=== PATIENT | female | born 1950 | race Caucasian/White ===

== ENCOUNTER 2017-04-20 00:12 | Observation (INO) | payer MEDICARE, OTHER ==
[2017-04-20] VITALS (11 sets, daily range): BP systolic 139–152; BP diastolic 63–80; PULSE 57–88; RESP 16–20; TEMP 97.8–98.2; O2SAT 94–97
[~2017-04-20] VITALS: Ht 111.8 cm; Wt 79.5 kg
[2017-04-20] MEDS ORDERED: MORPHINE SULFATE 4 MG/ML INJ IV PUSH ONE (00:15)
[2017-04-20] MEDS ORDERED: SODIUM CHLORIDE 0.9% FLUSH 10 ML FLUSH IVF PRN (00:15)
[2017-04-20] MEDS ORDERED: NITROGLYCERIN 2% OINT 1 GM PACKET TOP ONE (00:15)
--- NOTE | 2017-04-20 00:19 | PD ---
HPI Chief Complaint: CP Time Seen by Provider: 00:15 Travel History International Travel<30 days: No Contact w/Intl Traveler<30days: No Traveled to known affect area: No History of Present Illness HPI WHILE WAKING UP TO GO TO URINATE PATIENT DEVELOPED SUBSTERNAL CP, SHARP/PRESSURE , 10/10, NONRAD, TOOK HER OWN ASA, EMS GAVE NTG WHICH DECREASED PAIN TO 3/10, CURRENTLY 5/10. DENIES ANY ALLEVIATING/AGGRAVATING FACTORS PMHX: GERD, HTN, HIGH CHOLESTEROL, ANGINA AND ALSO HAS [employer] DEVICE PFS Social History Tobacco Use: Yes Allergies-Medications (Allergen,Severity, Reaction): Coded Allergies: No Known Allergies (Unverified , 04/20/17) Reported Meds & Prescriptions Reported Meds & Active Scripts Active Reported Isosorbide Dinitrate 10 Mg Tab 10 Mg PO BID Belsomra (Suvorexant) 20 Mg Tab 20 Mg PO HS Pantoprazole (Pantoprazole Sodium) 40 Mg Tab 40 Mg PO DAILY Tizanidine (Tizanidine HCl) 4 Mg Cap 4 Mg PO TID Simvastatin 20 Mg Tab 20 Mg PO DAILY Vitamin D-1000 (Cholecalciferol) 1,000 Unit Tab 1,000 Units PO DAILY Vicodin Hp (Hydrocodone-Acetaminophen) 10-300 Tab 1 Tab PO Q4H PRN Cymbalta DR (Duloxetine HCl) 60 Mg Capdr 60 Mg PO DAILY Citalopram (Citalopram Hydrobromide) 20 Mg Tab 20 Mg PO DAILY Aspirin EC (Aspirin) 81 Mg Tabdr 81 Mg PO DAILY Review of Systems Except as stated in HPI: all other systems reviewed are Neg Cardiovascular: Positive: Chest Pain or Discomfort Physical Exam Narrative GENERAL: SKIN: Warm and dry. HEAD: Atraumatic. Normocephalic. EYES: Pupils equal and round. No scleral icterus. No injection or drainage. ENT: No nasal bleeding or discharge. Mucous membranes pink and moist. NECK: Trachea midline. No JVD. CARDIOVASCULAR: Regular rate and rhythm. RESPIRATORY: No accessory muscle use. FAINT CRACKLES HEARD BILATERALLY GASTROINTESTINAL: Abdomen soft, non-tender, nondistended. MUSCULOSKELETAL: Extremities without clubbing, cyanosis, or edema. No obvious deformities. NEUROLOGICAL: Awake and alert. No obvious cranial nerve deficits. Motor grossly within normal limits. Five out of 5 muscle strength in the arms and legs. Normal speech. PSYCHIATRIC: Appropriate mood and affect; insight and judgment normal. Data Data Last Documented VS Vital Signs Date Time Temp Pulse Resp B/P Pulse Ox O2 Delivery O2 Flow Rate FiO2 04/20/17 00:15 70 16 139/63 94 Room Air Orders Electrocardiogram (04/20/17 00:15) B-Type Natriuretic Peptide (04/20/17 00:15) Ckmb (Isoenzyme) Profile (04/20/17 00:15) Complete Blood Count With Diff (04/20/17:15) Comprehensive Metabolic Panel (04/20/17 00:15) D-Dimer (04/20/17:15) Prothrombin Time / Inr (Pt) (04/20/17:15) Act Partial Throm Time (Ptt) (04/20/17:15) Troponin I (04/20/17:15) Lipase (04/20/17 00:15) Chest, Single Ap (04/20/17 00:15) Ecg Monitoring (04/20/17 00:15) Bilateral Bp Monitoring (04/20/17:15) Iv Access Insert/Monitor (04/20/17 00:15) Oximetry (04/20/17 00:15) Oxygen Administration (04/20/17 00:15) Morphine Inj (Morphine Inj) (04/20/17 00:15) Nitroglycerin 2% Oint (Nitroglycerin 2% (04/20/17 00:15) Sodium Chloride 0.9% Flush (Ns Flush) (04/20/17 00:15) Ct Pulmonary Angiogram (04/20/17 01:35) Sodium Chlorid 0.9% 500 Ml Inj (Ns 500 M (04/20/17 01:45) Admit Order (Ed Use Only) (04/20/17 02:24) Activity Bed Rest With Brp (04/20/17 02:24) Vital Signs (Adult) Q4H (04/20/17 02:24) Cardiac Rhythm .As Directed (04/20/17 02:24) Notify Dr: Other .PRN (04/20/17 02:24) Notify . Parameters (04/20/17 02:24) Resp Oxygen Nasal Cannula (04/20/17 ) Diet Npo (04/20/17 Breakfast) Ckmb (Isoenzyme) Profile (04/20/17 02:24) Ckmb (Isoenzyme) Profile (04/20/17 05:24) Troponin I (04/20/17 02:24) Troponin I (04/20/17 05:24) Electrocardiogram (04/20/17 02:24) Electrocardiogram (04/20/17 05:24) ^ Obtain (04/20/17 02:24) Sodium Chloride 0.9% Flush (Ns Flush) (04/20/17 02:30) Sodium Chloride 0.9% Flush (Ns Flush) (04/20/17 02:30) Morphine Inj (Morphine Inj) (04/20/17 02:30) Ondansetron Inj (Zofran Inj) (04/20/17 02:30) Nitroglycerin Sl (Nitrostat Sl) (04/20/17 02:30) Aspirin Chew (Aspirin Chew) (04/20/17 02:30) Floor Scraper / Telemetry JON.Q8H (04/20/17 02:24) CKMB (04/20/17 06:45) CKMB% (04/20/17 06:45) Labs Laboratory Tests Test 04/20/17 00:20 White Blood Count 7.4 TH/MM3 Red Blood Count 4.19 MIL/MM3 Hemoglobin 12.6 GM/DL Hematocrit 35.6 % Mean Corpuscular Volume 85.1 FL Mean Corpuscular Hemoglobin 30.0 PG Mean Corpuscular Hemoglobin 35.3 % Concent Red Cell Distribution Width 13.5 % Platelet Count 240 TH/MM3 Mean Platelet Volume 7.3 FL Neutrophils (%) (Auto) 51.7 % Lymphocytes (%) (Auto) 35.9 % Monocytes (%) (Auto) 9.1 % Eosinophils (%) (Auto) 3.1 % Basophils (%) (Auto) 0.2 % Neutrophils # (Auto) 3.8 TH/MM3 Lymphocytes # (Auto) 2.6 TH/MM3 Monocytes # (Auto) 0.7 TH/MM3 Eosinophils # (Auto) 0.2 TH/MM3 Basophils # (Auto) 0.0 TH/MM3 CBC Comment DIFF FINAL Differential Comment Prothrombin Time 10.2 SEC Prothromb Time International 0.9 RATIO Ratio Activated Partial 26.0 SEC Thromboplast Time D-Dimer Quantitative (PE/DVT) 0.59 MG/L FEU Sodium Level 143 MEQ/L Potassium Level 3.8 MEQ/L Chloride Level 108 MEQ/L Carbon Dioxide Level 26.6 MEQ/L Anion Gap 8 MEQ/L Blood Urea Nitrogen 20 MG/DL Creatinine 1.12 MG/DL Estimat Glomerular Filtration 48 ML/MIN Rate Random Glucose 141 MG/DL Calcium Level 8.6 MG/DL Total Bilirubin 0.2 MG/DL Aspartate Amino Transf 14 U/L (AST/SGOT) Alanine Aminotransferase 18 U/L (ALT/SGPT) Alkaline Phosphatase 80 U/L Total Creatine Kinase 99 U/L Troponin I 0.03 NG/ML B-Type Natriuretic Peptide 22 PG/ML Total Protein 6.7 GM/DL Albumin 3.2 GM/DL Lipase 224 U/L [facility] Medical Decision Making Medical Screen Exam Complete: Yes Emergency Medical Condition: Yes Medical Record Reviewed: Yes Differential Diagnosis NJ V NONSTEMI V PE V PNA V PTX Narrative Course PATIENT CXR SHOWED ?WIDENED MEDIASTINUM BUT WITHOUT PNA OR PTX..., SO CT PE DONE WHICH WAS NEGATIVE FOR PE BUT DID SHOW MEDIASTINAL LAD ALONG WITH INCIDENTAL THYROID NODULE. NO NJ ON EKG, Diagnosis Primary Impression: CP R/O NJ Additional Impression: Mediastinal lymphadenopathy Admitting Information Admitting Physician Requests: Observation Scripts Amoxicillin-Clavulanate (Augmentin)875-125 Mg Tab1 Tab PO BID 7 Days Ref 0 Prov:Yisel Vaz MD 04/21/17 Amlodipine (Norvasc)5 Mg Tab5 Mg PO DAILY 30 Days Ref 0 Prov:Yisel Vaz MD 04/21/17 Jose Pierre MD Apr 20, 2017 00:19
[2017-04-20] MEDS ORDERED: SUVO1TAB4 PO (00:28)
[2017-04-20] MEDS ORDERED: VITA1000 PO (00:28)
[2017-04-20] MEDS ORDERED: INDO25CA PO (00:28)
[2017-04-20] MEDS ORDERED: PANT40TA3 PO (00:28)
[2017-04-20] MEDS ORDERED: CYMB60CA PO (00:28)
[2017-04-20] MEDS ORDERED: TIZA4CAP3 PO (00:28)
[2017-04-20] MEDS ORDERED: HYDR-3115 PO (00:28)
[2017-04-20] MEDS ORDERED: ISOS10TA PO (00:28)
[2017-04-20] MEDS ORDERED: CITA20TA4 PO (00:28)
[2017-04-20] MEDS ORDERED: DICL50TA3 PO (00:28)
[2017-04-20] MEDS ORDERED: ASPI81TA11 PO (00:28)
[2017-04-20] MEDS ORDERED: SIMV20TA PO (00:28)
--- NOTE | 2017-04-20 00:49 | RADRPT ---
EXAM DATE/TIME: 04/20/2017 00:15 [facility] COMPARISON: No previous studies available for comparison. INDICATIONS : Chest pain. MEDICAL HISTORY : Gastroesophageal reflux disease. Hypercholesterolemia. SURGICAL HISTORY : Mastectomy, right. ENCOUNTER: Initial ACUITY: 1 day PAIN SCORE: 5/10 LOCATION: Bilateral chest FINDINGS: Patchy infiltrates in the medial lower lungs bilaterally without consolidation. The upper lungs are clear. The heart is normal size. Both hemidiaphragms well delineated. Spinal stimulation electrode s in the midthoracic region. CONCLUSION: Patchy non-consolidative lower lung infiltrates. Uli Yu MD on April 20, 2017 at 0:47 Board Certified Radiologist. This report was verified electronically.
[2017-04-20 00:51] LABS: AUTOMATED NEUTROPHIL # 3.8 TH/MM3 (1.8-7.7); BASOPHIL % 0.2 % (0.0-2.0); EOSINOPHIL # 0.2 TH/MM3 (0-0.4); EOSINOPHIL % 3.1 % (0.0-4.0); HEMATOCRIT 35.6 % (35.0-46.0); HEMO FLAGS DIFF FINAL; LYMPH % 35.9 % (9.0-44.0); LYMPHOCYTE # 2.6 TH/MM3 (1.0-4.8); MEAN CELL VOLUME 85.1 FL (80.0-100.0); MEAN CORPUSCULAR HGB CONC 35.3 % (32.0-36.0); MONO % 9.1 % (0.0-8.0); NEUT % 51.7 % (16.0-70.0); PLATELET COUNT 240 TH/MM3 (150-450); RED BLOOD COUNT 4.19 MIL/MM3 (4.00-5.30); RED CELL DISTRIBUTION WIDTH 13.5 % (11.6-17.2); WHITE BLOOD COUNT 7.4 TH/MM3 (4.0-11.0)
[2017-04-20 00:59] LABS: ALT (GPT) 18 U/L (10-53); ANION GAP 8 MEQ/L (5-15); AST (GOT) 14 U/L (15-37); BICARBONATE 26.6 MEQ/L (21.0-32.0); BLOOD UREA NITROGEN 20 MG/DL (7-18); CHLORIDE 108 MEQ/L (98-107); GLOMERULAR FILTRATION RATE 48 ML/MIN (>89); POTASSIUM 3.8 MEQ/L (3.5-5.1); SODIUM (NA) 143 MEQ/L (136-145)
[2017-04-20 01:03] LABS: ALKALINE PHOSPHATASE 80 U/L (45-117); TOTAL BILIRUBIN ADULT 0.2 MG/DL (0.2-1.0)
[2017-04-20 01:06] LABS: CREATINE KINASE 99 U/L (26-192)
[2017-04-20 01:07] LABS: INTERNATIONAL NORMALIZED RATIO 0.9 RATIO; PROTHROMBIN TIME - PATIENT 10.2 SEC (9.8-11.6)
[2017-04-20] MEDS ORDERED: SODIUM CHLORID 0.9% 500 ML INJ 500 ML IV ONE (01:45)
[2017-04-20] MEDS ORDERED: MORPHINE SULFATE 4 MG/ML INJ IV PRN (02:30)
[2017-04-20] MEDS ORDERED: SODIUM CHLORIDE 0.9% FLUSH 10 ML FLUSH IV FLUSH PRN (02:30)
[2017-04-20] MEDS ORDERED: ONDANSETRON HCL 4 MG/2 ML VIAL IV PRN ×2 (02:30→12:15)
[2017-04-20] MEDS ORDERED: NITROGLYCERIN 0.4 MG SL 25 TABS/BTL SL PRN (02:30)
[2017-04-20] MEDS ORDERED: ASPIRIN 81 MG CHEW TAB PO ONE (02:30)
[2017-04-20] MEDS: SODIUM CHLORIDE 0.9% FLUSH 10 ML FLUSH IV FLUSH SCH ×3 (02:32→20:27)
[2017-04-20] MEDS ORDERED: IOHEXOL 350 MG/ML 10 ML VIAL (for RAD DIAG) IV ONE (02:55)
--- NOTE | 2017-04-20 03:05 | RADRPT ---
EXAM DATE/TIME: 04/20/2017 02:39 [facility] COMPARISON: No previous studies available for comparison. INDICATIONS : Chest pain with elevated D-Dimer. IV CONTRAST: 75 cc Omnipaque 350 (iohexol) IV RADIATION DOSE: 23.38 CTDIvol (mGy) MEDICAL HISTORY : Gastroesophageal reflux disease. SURGICAL HISTORY : Hysterectomy. Spinal stimulator ENCOUNTER: Initial ACUITY: 1 day PAIN SCALE: 8/10 LOCATION: Bilateral chest TECHNIQUE: Volumetric scanning of the chest was performed using a pulmonary embolism protocol MIP images were re constructed. Using automated exposure control and adjustment of the mA and/or kV according to patien t size, radiation dose was kept as low as reasonably achievable to obtain optimal diagnostic quality images. DICOM format image data is available electronically for review and comparison. Follow-up recommendations for detected pulmonary nodules are based at a minimum on nodule size and pa tient risk factors according to Fleischner Society Guidelines. FINDINGS: PULMONARY ARTERIES: No filling defects are seen in the pulmonary arteries through the segmental level. LUNGS: There is a small triangular-shaped area of consolidation in the anterior left lower lung and medial r ight lower lung adjacent to the heart border. PLEURAE: There is no pleural thickening or pleural effusion. MEDIASTINUM: Multiple prominent lymph nodes in the superior mediastinum (1.4 cm), middle mediastinum and periaorti c region (1.8 cm), right hilar region (2.5 cm), and left infrahilar region (1.5 cm). OTHER: Enlarged right lobe of the thyroid containing a 2.2 cm low density nodule CONCLUSION: 1. The study is negative for pulmonary embolism. 2. Adenopathy in the superior mediastinum, middle mediastinum, and bilateral hilar regions. 3. 2 cm right thyroid nodule. 4. Small bilateral lower lung pulmonary infiltrates. Uli Yu MD on April 20, 2017 at 2:58 Board Certified Radiologist. This report was verified electronically.
[2017-04-20] MEDS ORDERED: LEVOFLOXACIN 500 MG PREMIX INJ 100 ML IV ONE (03:15)
[2017-04-20] MEDS ORDERED: PILL SPLITTER OTHER PRN (08:15)
[2017-04-20] MEDS: NITROGLYCERIN 2% OINT 1 GM PACKET TOPICAL SCH ×3 (08:19→20:27)
[2017-04-20 08:32] LABS: CKMB 6.6 NG/ML (0.5-3.6)
[2017-04-20] MEDS ORDERED: amLODIPine BESYLATE 5 MG TAB PO SCH (09:00)
[2017-04-20] MEDS ORDERED: SODIUM CHLOR 0.9% 1000 ML INJ 1,000 ML IV SCH ×2 (09:41→12:15)
--- NOTE | 2017-04-20 09:44 | HHI.HP ---
[facility] Service [facility] Primary Care Physician No Primary Care Physician Admission Diagnosis CP R/O [place] Diagnoses: (1) Chest pain Diagnosis: Principal Travel History International Travel<30 Days: No Contact w/Intl Traveler <30 Da: No Traveled to Known Affected Are: No History of Present Illness patient is a 67 y/o female with history of angina and dyslipidemia who presented to ER with chest pain. she says that last night when she was going to bathroom she started to have some chest pain.pain was midsternal with some radiation to the left jaw and left arm. pain was associated with nausea but with no emesis,sob or diaphoresis. pain improved with the nitro that she received. at the time of my evaluation she was in no acute distress, with no chest pain but complaining of mild headache.she says that she had stress test about two years ago. Review of Systems Constitutional: DENIES: Fever, Weight loss, Chills, Night Sweats Eyes: DENIES: Blurred vision, Diplopia, Vision loss, Double Vision Ears, nose, mouth, throat: DENIES: Tinnitus, Vertigo, Throat pain, Epistaxis Respiratory: DENIES: Apneas, Cough, Snoring, Wheezing, Hemoptysis, Sputum production, Shortness of breath Cardiovascular: COMPLAINS OF: Chest pain, DENIES: Palpitations, Syncope, Dyspnea on Exertion, PND, Lower Extremity Edema, Orthopnea, Claudication Gastrointestinal: COMPLAINS OF: Nausea, DENIES: Abdominal pain, Black stools, Bloody stools, Constipation, Diarrhea, Vomiting, Difficulty Swallowing, Anorexia Genitourinary: DENIES: Urinary frequency, Urgency, Hematuria, Dysuria Musculoskeletal: DENIES: Joint pain, Muscle aches, Stiffness, Joint Swelling Integumentary: DENIES: Rash Neurologic: DENIES: Abnormal gait, Headache, Localized weakness, Paresthesias, Seizures, Speech Problems, Tremor, Poor Balance Psychiatric: DENIES: Anxiety, Confusion, Mood changes, Depression, Hallucinations, Agitation, Suicidal Ideation, Homicidal Ideation, Delusions Past Family Social History Past Medical History angina dyslipidemia breast cancer pituitary tumor back pain Past Surgical History mastectomy with breast reconstruction pituitary tumor removal gastric surgery knee surgery Reported Medications Isosorbide Dinitrate 10 Mg Tab 10 Mg PO BID Diclofenac Sodium DR (Diclofenac Sodium) 50 Mg Tabdr 50 Mg PO BID Belsomra (Suvorexant) 20 Mg Tab 20 Mg PO HS Pantoprazole (Pantoprazole Sodium) 40 Mg Tab 40 Mg PO DAILY Indomethacin 25 Mg Cap 25 Mg PO TID Take with food, milk, or antacids to decrease stomach adverse effects. Tizanidine (Tizanidine HCl) 4 Mg Cap 4 Mg PO TID Simvastatin 20 Mg Tab 20 Mg PO DAILY Vitamin D-1000 (Cholecalciferol) 1,000 Unit Tab 1,000 Units PO DAILY Vicodin Hp (Hydrocodone-Acetaminophen) 10-300 Tab 1 Tab PO Q4H PRN Cymbalta DR (Duloxetine HCl) 60 Mg Capdr 60 Mg PO DAILY Citalopram (Citalopram Hydrobromide) 20 Mg Tab 20 Mg PO DAILY Aspirin EC (Aspirin) 81 Mg Tabdr 81 Mg PO DAILY Allergies: Coded Allergies: No Known Allergies (Unverified , 04/20/17) Active Ordered Medications Current Medications Morphine Sulfate (Morphine Inj) 2 mg ONCE ONCE IV PUSH Last administered on 00:36; Start 04/20/17 at 00:15; Stop 04/20/17 at 00:18; Status DC Nitroglycerin (Nitroglycerin 2% Oint) 1 inch ONCE ONCE TOP Last administered on 04/20/17 00:36; Start 04/20/17 at 00:15; Stop 04/20/17 at 00:18; Status DC Sodium Chloride 2 ml 2 ml UNSCH PRN IVF FLUSH AFTER USING IV ACCESS; Start at 00:15 Sodium Chloride (NS 500 ml Inj) 500 ml @ 500 mls/hr BOLUS ONCE IV Last administered on 04/20/17 02:02; Start 04/20/17 at 01:45; Stop 04/20/17 at 02:44 ; Status DC Sodium Chloride (NS Flush) 2 ml UNSCH PRN IV FLUSH FLUSH AFTER USING IV ACCESS ; Start 04/20/17 at 02:30 Sodium Chloride (NS Flush) 2 ml BID IV FLUSH Last administered on 04/20/17 08: 20; Start 04/20/17 at 02:30 Morphine Sulfate (Morphine Inj) 2 mg Q4H PRN IV PAIN SCALE 8 TO 10; Start 04/20 at 02:30 Ondansetron HCl (Zofran Inj) 4 mg Q6H PRN IV NAUSEA; Start 04/20/17 at 02:30 Nitroglycerin (Nitrostat Sl) 0.4 mg Q5M PRN SL CHEST PAIN; Start 04/20/17 at 02 :30 Aspirin (Aspirin Chew) 162 mg STAT ONCE PO ; Start 04/20/17 at 02:30; Stop at 02:31; Status DC Iohexol 75 ml 75 ml STK-MED ONCE IV Last administered on 04/20/17 02:55; Start 04/20/17 at 02:55; Stop 04/20/17 at 02:56; Status DC Levofloxacin/ Dextrose (Levaquin 500 Mg Premix Inj) 100 ml @ 100 mls/hr ONCE ONCE IV Last administered on 04/20/17 03:15; Start 04/20/17 at 03:15; Stop at 04:14; Status DC Nitroglycerin (Nitroglycerin 2% Oint) 1 inch Q6H TOPICAL Last administered on 08:19; Start 04/20/17 at 08:00 Amlodipine Besylate (Norvasc) 2.5 mg DAILY PO Last administered on 04/20/17 08 :19; Start 04/20/17 at 09:00 Miscellaneous (Pill Splitter) 1 ea UNSCH PRN OTHER SEE LABEL COMMENTS; Start at 08:15 Family History heart attack in her father at his 40's. Social History quit smoking a month ago. doesn't drink. Physical Exam Vital Signs Vital Signs Date Time Temp Pulse Resp B/P Pulse Ox O2 Delivery O2 Flow Rate FiO2 04/20/17 05:54 73 04/20/17 05:47 97.8 57 18 141/70 96 04/20/17 03:45 62 20 143/67 96 Room Air 04/20/17 02:52 21 04/20/17 00:15 70 16 139/63 94 Room Air Physical Exam GENERAL: This is a well-nourished, well-developed patient, in no apparent distress. SKIN: No rashes, ecchymoses or lesions. Cool and dry. HEAD: Atraumatic. Normocephalic. No temporal or scalp tenderness. EYES: Pupils equal round and reactive. Extraocular motions intact. No scleral icterus. No injection or drainage. ENT: Nose without bleeding, purulent drainage or septal hematoma. Throat without erythema, tonsillar hypertrophy or exudate. Uvula midline. Airway patent. NECK: Trachea midline. No JVD or lymphadenopathy. Supple, nontender, no meningeal signs. CARDIOVASCULAR: Regular rate and rhythm without murmurs, gallops, or rubs. RESPIRATORY: Clear to auscultation. Breath sounds equal bilaterally. No wheezes , rales, or rhonchi. GASTROINTESTINAL: Abdomen soft, non-tender, nondistended. No hepato-splenomegaly , or palpable masses. No guarding. MUSCULOSKELETAL: Extremities without clubbing, cyanosis, or edema. No joint tenderness, effusion, or edema noted. No calf tenderness. Negative Homans sign bilaterally. NEUROLOGICAL: Awake and alert. Cranial nerves II through XII intact. Motor and sensory grossly within normal limits. Five out of 5 muscle strength in all muscle groups. Normal speech. Laboratory Laboratory Tests Test 04/20/17 04/20/17 04/20/17 00:20 05:00 06:45 White Blood Count 7.4 Red Blood Count 4.19 Hemoglobin 12.6 Hematocrit 35.6 Mean Corpuscular Volume 85.1 Mean Corpuscular Hemoglobin 30.0 Mean Corpuscular Hemoglobin 35.3 Concent Red Cell Distribution Width 13.5 Platelet Count 240 Mean Platelet Volume 7.3 Neutrophils (%) (Auto) 51.7 Lymphocytes (%) (Auto) 35.9 Monocytes (%) (Auto) 9.1 Eosinophils (%) (Auto) 3.1 Basophils (%) (Auto) 0.2 Neutrophils # (Auto) 3.8 Lymphocytes # (Auto) 2.6 Monocytes # (Auto) 0.7 Eosinophils # (Auto) 0.2 Basophils # (Auto) 0.0 CBC Comment DIFF FINAL Differential Comment Prothrombin Time 10.2 Prothromb Time International 0.9 Ratio Activated Partial 26.0 Thromboplast Time D-Dimer Quantitative (PE/DVT) 0.59 Sodium Level 143 Potassium Level 3.8 Chloride Level 108 Carbon Dioxide Level 26.6 Anion Gap 8 Blood Urea Nitrogen 20 Creatinine 1.12 Estimat Glomerular Filtration 48 Rate Random Glucose 141 Calcium Level 8.6 Total Bilirubin 0.2 Aspartate Amino Transf 14 (AST/SGOT) Alanine Aminotransferase 18 (ALT/SGPT) Alkaline Phosphatase 80 Total Creatine Kinase 99 98 254 Troponin I 0.03 0.32 0.36 B-Type Natriuretic Peptide 22 Total Protein 6.7 Albumin 3.2 Lipase 224 Creatine Kinase MB 6.6 Creatine Kinase MB % 2.6 Result Diagram: 04/20/17 0020 04/20/[address] Angiography 04/20/17 0135 Signed Impressions: Service Date/Time: Thursday, April 20, 2017 02:39 - CONCLUSION: 1. The study is negative for pulmonary embolism. 2. Adenopathy in the superior mediastinum, middle mediastinum, and bilateral hilar regions. 3. 2 cm right thyroid nodule. 4. Small bilateral lower lung pulmonary infiltrates. Uli Yu MD Chest X-Ray 04/20/17 0015 Signed Impressions: Service Date/Time: Thursday, April 20, 2017 00:15 - CONCLUSION: Patchy non-consolidative lower lung infiltrates. Uli Yu MD EKG; sinus rhythm with no acute St-T changes Assessment and Plan Assessment and Plan A/P - NSTEMI received aspirin earlier- on nitro-cardiology consulted - dyslipidemia- resume statin -history of breast cancer with mediastinal adenopathy; f/u with her oncologist- this was d/w the patient. -thyroid nodule; f/u as outpatient; d/w the patient. -chronic back pain; continue with pain control.. Discussed Condition With the patient. Problem Qualifiers (1) Chest pain: Qualified Code: R07.9 - Chest pain, unspecified type Yisel Vaz MD Apr 20, 2017 09:44
[2017-04-20] MEDS ORDERED: ASPIRIN 325 MG TAB PO SCH (09:45)
[2017-04-20] MEDS ORDERED: diphenhydrAMINE HCL 50 MG/ML VIAL ONE (10:07)
[2017-04-20] MEDS ORDERED: methylPREDNISolone SOD SUCC 125 MG/2 ML VIAL ONE (10:07)
--- NOTE | 2017-04-20 10:17 | MB ---
cc: SHAHNAZ NICK M.D. DATE OF CONSULTATION 04/20/2017 REASON FOR CONSULTATION Evaluation of chest pain. HISTORY Barbi Roberts is a 67-year-old woman with a history of angina for the last 10-15 years. She has seen a technical support internship in [place] and had her last stress test two years ago. She traveled from [place] to [place] for vacation with her son and . She went to bed at 10:00 p.m. and woke up to urinate around midnight and when she was going back to bed developed severe substernal chest pain radiating to left arm and left jaw. It continued and did not go away. They called 9-1-1. The ambulance gave her two sprays of nitroglycerin and then it took about two hours for it to completely resolve. Her troponins have bumped up to 0.36 and so I was consulted. She has multiple risk factors for coronary artery disease. Father had his first heart attack at age 47, had multiple heart attacks after that. The patient smoked up to a pack a day since 17 years of age, having quit only one month ago. She has had recent high blood pressure. She has prediabetes. She is on simvastatin for hyperlipidemia. PAST MEDICAL HISTORY Includes: 1. Gastroesophageal reflux disease status post laparoscopic surgery to repair this. 2. Pre diabetes 3. Hypertension 4. Hyperlipidemia 5. Chronic angina 6. Chronic back pain with a [employer] stimulator. SOCIAL HISTORY She is . She is on vacation from [place]. She lives near [place]. She has a longstanding smoking history as described above. FAMILY HISTORY Father at age 67, but had several heart attack starting at age 47. Her mother was diabetic and when she finally , she had heart problems. There is no heart disease in her siblings. REVIEW OF SYSTEMS She has occasional stomach cramps. She has chronic back pain. She has neck and shoulder pain and was planning to have C-spine surgery May 02. She has sciatica in the left leg. PAST SURGERIES Include: 1. Pituitary tumor resection 2. Breast cancer with right mastectomy and reconstruction 3. Hysterectomy 4. Left knee surgery 5. Toe surgery PHYSICAL EXAMINATION This is a well-developed, well-nourished female in no acute distress. VITAL SIGNS: Charted. HEENT: Exam unremarkable. NECK: Shows no JVD. There are no carotid bruits. CHEST: Her chest shows slightly diminished breath sounds. No wheezes or rales. CARDIAC: S1, S2 regular rate and rhythm with a 1/6 systolic ejection murmur. ABDOMEN: Soft and nontender. EXTREMITIES: Reveal no clubbing, cyanosis or edema. Pulses are intact. Initial EKG showed a strain pattern in AVL which cleared up on a second EKG which I think is probably due to ischemia. Her troponin started out normal going up to 0.36, creatinine is 1.12, hematocrit 35.6. IMPRESSION Acute non-ST segment elevation myocardial infarction. PLAN I have obtained informed consent for cardiac catheterization and possible intervention. The risks discussed. Spoke briefly to her son, Mariano on the phone who will be on the way in along with her . The cardiac cath will be performed this morning. Further therapy to be determined. MD JUAN CARLOS Brar/MISHEL /9:43 AM /10:07 AM
[2017-04-20] MEDS ORDERED: HEPARIN-NS/PF INJ 500 ML ONE (10:52)
[2017-04-20] MEDS ORDERED: MIDAZOLAM HCL 2 MG/2 ML VIAL ONE (11:07)
[2017-04-20] MEDS ORDERED: MORPHINE SULFATE 8 MG/ML INJ ONE (11:49)
[2017-04-20] MEDS ORDERED: BACITRACIN OINT 0.9 GM PKT TOP ONE (12:15)
[2017-04-20] MEDS ORDERED: MISC INFORMATION XX ONE (12:15)
--- NOTE | 2017-04-20 12:26 | CATHPROC ---
[facility] HIS Report Study Information Study Number Admission Scheduled Start Study Start [id number] Apr 20 2017 2:27AM 04/20/2017 Apr 20 2017 9:54AM [place] Service Cardiac Catheterization Admit Source Facility Department Other [facility] - [employer] I Assembler Physician and Clinical Staff Initial Dominick Andre Casino Cashier Manager Phoebe Baird BSRKasandra Other cathlab, cathlab Recorder Kathleen Wiseman,COOLER WORKER TECH2 Recorder Sasha Mcclain,RT(R) Scrub Chapis Martinez,RT(R) Procedures Performed Procedure Location (Site) Vessel Name Angiogram LV LV Ventricle Coronary Angiograms LCA Left Coronary Coronary Angiograms RCA Right Coronary L Heart Cath Equipment Time Supervisor Properties Description Size Mfg Part Number Used/Scraped TRANSDUCER, TRHARISH [id number] 09:56 CORNEJO HANNON * Used W/STOCKCOCK *[id number] *[id number] *[id number] PIGTAIL ANG. 145 INFINITI [id number] CATHETER *[id number] 12:06 DAIG/ST. CHANA MEDICAL ANGIOSEAL, FR6 VIP FR 6 Used *[id number] 09:56 [facility] INDUSTRIES PACK, CCL CUSTOM * Used *[id number] 09:56 [facility] PACER PEN, SKIN DUAL W/ RULER * Used *[id number] 09:56 [employer] MEDICAL SHEATH, FR6.5 PRELUDE 11CM FR 6.5 038ACT Used *[id number] 09:56 [employer] MEDICAL WIRE, 3MMJ .035 180CM 180CM Used *[id number] 09:56 NAMIC MANIFOLD, 4 PORT * Used *[id number] 09:56 [employer] OMNIPAQUE, 350 MG, 100ML 100ML [id number] Used 11:56 [employer] OMNIPAQUE, 350 MG, 50ML 50ML [id number] Used [id number] 09:56 [employer] BLANKET,WARM AIR CCL * Used *[id number] History: Current Medications Medication Dosage/Unit Route Frequency Last Date/Time Taken Statins (any) Imdur VITAMIN D ASA History: Risk Factors Family History of Hypertension Dyslipidemia Previous [place] Previous Heart Failure Premature CAD Yes Yes Yes Yes No Prior Valve Prior PCI Prior CABG Surgery No No No Cerebrovascular Peripheral Artery Chronic Lung On Dialysis Diabetes Disease Disease Disease No No No No No History: Symptoms/Diagnosis Selection Items Chest pain History: Stress Tests Stress or Imaging Studies Performed No History: Other Current Smoker Method Packs a Day Years Used Pack Years Yes Cigarettes 1 50 50 Comment 1/2pack per day for 60years Labs Hgb (g/dl) Hct (%) WBC (l/cumm) Platelets (thousands) 11.60-17.00 35.00-51.00 4.00-11.00 150.00-450.00 12.6 35.6 7.4 240 Glucose (mg/dl) BUN (mg/dl) Creatinine (mg/dl) BUN:Creatinine (1:x) 74.00-106.00 7.00-18.00 0.50-1.30 10.00-20.00 141 20 1.1 18.2 Na (meq/l) K (meq/l) 136.00-145.00 3.50-5.10 143 3.8 INR (PTT:PT) 0.90-1.10 0.9 Troponin I (ng/ml) CPK (u/l) CPK-MB (ng/ML) 0.02-0.05 26.00-308.00 0.50-3.60 0.36 254 6.6 Medication Medication Total Dose (Bolus/Oral) Medication Total Dosage/Unit 1% XYLOCAINE 20 mL BENADRYL 50 mg MORPHINE 2 mg SOLU-MEDROL 125 mg VERSED 1 mg Medications (Bolus/Oral) Medication Time Given Dosage/Unit Administered By Reason SOLU-MEDROL 04/20/2017 10:37:31 AM 125 mg Rittenour, Phoebe 125 mg SOLU-MEDROL given in holding/recovery area by Phoebe Baird BSRN in Left Hand via Peripher al IV. BENADRYL 04/20/2017 10:38:30 AM 50 mg Rittenour, Phoebe 50 mg BENADRYL given in holding/recovery area by Phoebe Baird BSRN in Left Hand via Peripheral I V. VERSED 04/20/2017 11:29:44 AM 1 mg Rittenour, Phoebe 1 mg VERSED given in lab by Phoebe Baird BSRN in Left Hand via Peripheral IV. 1% XYLOCAINE 04/20/2017 11:51:23 AM 20 mL Dominick Payton 20 mL 1% XYLOCAINE given in lab by Dominick Payton in Right Groin via Subcutaneous. MORPHINE 04/20/2017 11:51:39 AM 2 mg Phoebe Baird 2 mg MORPHINE given in lab by Phoebe Baird BSRN in Left Hand via Peripheral IV. Medication (Drip) Medication Time Given Dosage/Unit Concentration/Unit Diluent (ml) Solution IV Solutions 04/20/2017 11:01:47 AM 0 mL (IV) 1000 NaCl .9 Patient arrived on IV Solutions given by Phoebe Baird BSRN in Left Hand via Peripheral IV. Pump/ Drip Flow = 20 ml/hr using NaCl .9. Final Case Assessment Cardiovascular HR Rhythm NIBP Chest Pain 68 nsr 189/81 0 Edema Present Skin color Skin None Normal Warm Circulatory - Right Pulses Dorsalis Pedis Femoral 1 1 Scale (0,1,2,3,4,d) Circulatory - Left Pulses Dorsalis Pedis Femoral 1 1 Scale (0,1,2,3,4,d) Neurological State Oriented to time-place- Alert Moves all extremities person Respiration - General Respiration Rate SpO2 (%) (B/min) 11 95 Chronological Log Time Study Chronological Log 9:58:42 Patient arrived via Bed. 9:58:46 Patient Name, D.O.B, / Armband Verified By R.N. 10:00:35 Consent signed by the physician and the patient and verified by the [employer] I Assembler staff. 10:00:36 Pre-op and post- op instructions given; patient acknowledges understanding of instructions. 10:01:39 Patient has been NPO for More than 6Hrs. 10:01:40 Skin Breakdown- knicks from shaving legs 10:01:47 Patient Warmer Placed on the Table. 10:02:00 A # 20 IV was noted in the Antecubital (left). Grade = does not flush 10:15:08 MD called away for STEMI, Patient transporated to DOCU until MD available. 10:37:31 125 mg SOLU-MEDROL given in holding/recovery area by Phoebe Baird BSRN in Left Hand vi a Peripheral IV. 10:38:30 50 mg BENADRYL given in holding/recovery area by Phoebe Baird BSRN in Left Hand via Pe ripheral IV. Patient brought back to Cathlab. Patient pre-medicated with benedyrl 50 mg IV 10:38 and solumed rol 125 mg IV 10:49:35 10:37. 10:51:21 Korina Prominences Protected Vitals capture started with the following parameters, Patient=Adult, Interval=5 min, Initial Pr kxpymj=556 mmHg, 10:55:25 Deflation Rate=5 mmHg, Cuff placed on Right Arm 10:56:29 HR=71 bpm, LQMS=300/104 mmhg, SpO2=97.0 %, Pain=0, Sunita=10, Claros=2 11:00:08 Reference ECG taken 11:01:09 HR=67 bpm, XTKL=328/67 mmhg, SpO2=97.0 %, Resp=8 B/min 11:01:16 A # 22 IV was noted in the Hand (left). Grade = patent Patient arrived on IV Solutions given by Phoebe Baird BSRN in Left Hand via Peripheral IV. Pump/Drip Flow = 20 11:01:47 ml/hr using NaCl .9. 11:06:08 HR=65 bpm, XDLW=488/84 mmhg, SpO2=97.0 %, Resp=13 B/min 11:11:16 HR=63 bpm, CXJM=173/86 mmhg, SpO2=96.0 %, Resp=17 B/min 11:16:11 HR=61 bpm, OKFV=201/103 mmhg, SpO2=96.0 %, Resp=14 B/min 11:25:30 X-ray down, patient transferred to another lab. Vitals capture started with the following parameters, Patient=Adult, Interval=5 min, Initial Pr zywnti=248 mmHg, 11:26:54 Deflation Rate=5 mmHg, Cuff placed on Right Arm 11:27:57 Bilateral groins prepped with 2% chlorhexidine, and draped after a 3 min. waiting time. 11:28:28 Vitals capture stopped. Vitals capture started with the following parameters, Patient=Adult, Interval=5 min, Initial Pr bxhrnf=271 mmHg, 11:29:07 Deflation Rate=5 mmHg, Cuff placed on Left Leg 11:29:44 1 mg VERSED given in lab by Phoebe Baird BSRN in Left Hand via Peripheral IV. 11:30:12 Reference ECG taken 11:30:21 HR=67 bpm, WLLH=398/97 mmhg, SpO2=97.0 %, Resp=17 B/min 11:33:01 Pressure channel 1 zeroed. 11:34:58 HR=63 bpm, ALSI=430/83 mmhg, SpO2=97.0 %, Resp=16 B/min 11:37:38 MD paged 11:37:39 MD responded 11:40:01 HR=63 bpm, CRGT=293/75 mmhg, SpO2=96.0 %, Resp=14 B/min 11:45:43 HR=65 bpm, VTCU=537/86 mmhg, SpO2=97.0 %, Resp=13 B/min 11:47:59 MD arrived. Time Out. Correct patient, correct procedure,correct physician, ,power injector loaded or not l oaded with contrast with 11:48:22 surgical team present. Time Out Concurred by MD, individual staff and GLASS CUT OFF SUPERVISOR in procedure 11:49:31 Case Start 11:51:23 20 mL 1% XYLOCAINE given in lab by Dominick Payton in Right Groin via Subcutaneous. 11:51:30 HR=63 bpm, CPEV=633/78 mmhg, SpO2=96.0 %, Resp=17 B/min 11:51:39 2 mg MORPHINE given in lab by Phoebe Baird BSRN in Left Hand via Peripheral IV. 11:53:47 Access site was Right Femoral Artery. 11:54:00 A SHEATH, FR6.5 PRELUDE 11CM FR 6.5 was advanced into the Fem Art (right) using the Percuta neous technique. 11:54:56 HR=67 bpm, UBQD=993/78 mmhg, SpO2=95.0 %, Resp=5 B/min A PIGTAIL ANG. 145 INFINITI CATHETER FR 6 was advanced over a wire. OMNIPAQUE, 350 MG, 50ML 50M L was used 11:55:04 for injections. Recorded Pressure: LV, HR=68, Condition=Condition 1 11:56:22 (Left Ventricle) LV 154/-10/11 11:56:46 The LV was injected at 10 cc/sec for a total of 30. OMNIPAQUE, 350 MG, 50ML 50ML used. Recorded Pressure: LV, Ao, HR=68, Condition=Condition 1 11:57:33 (Left Ventricle) LV 159/-5/11, (Aorta) Ao 155/71/106 11:57:58 Catheter was removed A JL 4.0 INFINITI CATHETER FR 6 was advanced over a wire. OMNIPAQUE, 350 MG, 100ML 100ML was us ed for 11:58:00 injections. 11:59:55 HR=65 bpm, RGBN=565/81 mmhg, SpO2=94.0 %, Resp=13 B/min 12:00:09 The LCA was injected and visualized at various angles. OMNIPAQUE, 350 MG, 100ML 100ML used . 12:00:29 Catheter was removed A 3DRC INFINITI CATHETER FR 6 was advanced over a wire. OMNIPAQUE, 350 MG, 100ML 100ML was used for 12:00:32 injections. 12:02:31 The RCA was injected and visualized at various angles. OMNIPAQUE, 350 MG, 100ML 100ML used . 12:04:30 Catheter was removed 12:04:54 HR=76 bpm, QTTL=375/76 mmhg, SpO2=94.0 %, Resp=12 B/min 12:05:05 An injection in the Fem Art (right) was made through the SHEATH, FR6.5 PRELUDE 11CM FR 6.5. 12:05:54 ANGIOSEAL, FR6 VIP FR 6 placement in the Fem Art (right) 12:06:49 Case End 12:06:51 No case complications noted. 12:07:31 Sterile dressing applied to site 12:08:48 Cine recording checked. 12:08:54 Bedside Report will be given. 12:09:55 HR=68 bpm, FPNV=742/81 mmhg, SpO2=95.0 %, Resp=11 B/min 12:13:59 Implantable Device card placed in patient's chart. 12:15:05 A Left Heart Cath was performed. 12:15:07 Patient moved to stretcher 12:16:36 Patient transported to DOCU. Assessment: Final Case, HR=68 BPM, Rhythm=nsr, ZNUY=614/81 mmhg, Chest Pain=0, Edema=None, Leland r=Normal, Skin = Warm Right Pulses: Michel Ped=1, Femoral=1 12:24:05 Left Pulses: Michel Ped=1, Femoral=1 Neurological: State=Alert, Ox3, ANDINO Respiration: Resp=11 B/min, SpO2=95 % End Study - Contrast Media Used In Study Contrast Total Opened (mL) Total Used (mL) Total Wasted (mL) Omnipaque 85 85 0 End Study - Maximum Contrast Load Max Contrast Load (mL) 354.5 End Study - Radiation Exposure Fluoro Time (minutes) 1.9 End Study - Sheaths Sheaths Pulled By Sheath Hold Time (min) Dominick Payton 5 End Study - Patient Disposition Complications Transferred To Telemetry Bed
--- NOTE | 2017-04-20 12:37 | MA ---
cc: SHAHNAZ NICK M.D. DATE: 04/20/2017 PROCEDURE PERFORMED Left heart catheterization, left ventriculography, coronary angiography. BRIEF HISTORY Barbi Roberts is a 67-year-old female with longstanding history of angina, who came in with a severe chest pain episode and bumped her troponin up to above 0.3. Cardiac catheterization is performed to define her coronary anatomy and to see if revascularization was indicated. DESCRIPTION OF PROCEDURE The patient was brought to the cardiac qc lab technician in a fasting state. The right groin was prepped and draped in a sterile fashion. Using 1% lidocaine for local anesthesia a 6.5 Indonesian sheath was inserted in the right femoral artery. Next, left ventricular pressure was recorded using a pigtail catheter followed by left ventriculography and then a pullback. Coronary angiography was then performed using a left 4 Haresh for the left coronary artery and a 3-D RC for the right coronary artery. Angiography of the right femoral artery via the sheath was then performed followed by uncomplicated Angio-Seal placement. There were no complications. FINDINGS HEMODYNAMICS Left ventricular pressure is 159/0 with an end-diastolic pressure of 11. Aortic pressure is 155/71 with a mean of 106. There was no gradient during pullback from the left ventricle to the aorta. LEFT VENTRICULOGRAPHY Left ventriculography shows normal left ventricular function. Estimated ejection fraction is 60%. CORONARY ANGIOGRAPHY The left main coronary artery appears normal. The left anterior descending artery has a discrete 30% concentric proximal stenosis. The remainder of the LAD and the major diagonal branch were tortuous but without disease. The circumflex artery gives off one tortuous obtuse marginal branch and a mildly tortuous posterolateral branch which appear normal. The right coronary artery is dominant. The vessel has some slight proximal irregularity of 5% and about a 20% mid irregularity. It is a dominant vessel. CONCLUSIONS 1. Normal left ventricular function. 2. Normal left ventricular end-diastolic pressure. 3. Very mild nonobstructive coronary disease. PLAN The overall impression is that she may have sustained a small infarct due to coronary spasm. She has been on long-acting nitrates prior to admission. Will continue those and add amlodipine 5 mg daily. Will avoid a beta nabor since this potentially could worsen spasm. Continue her statin therapy. She can be discharged home when stable. MD LENNY Brar /12:19 PM /12:24 PM
[2017-04-20] MEDS ORDERED: IOHEXOL 350 MG/ML 100 ML BTL (for Cath Lab) OTHER ONE (14:15)
--- NOTE | 2017-04-20 15:55 | EKG ---
Date Performed: 04/20/2017 Time Performed: 04:56:00 PTAGE: 67 years EKG: Sinus rhythm ABNORMAL ECG NO PREVIOUS TRACING DOCTOR: Apolinar Wyman Interpretating Date/Time 04/20/2017 15:53:08
--- NOTE | 2017-04-20 15:56 | EKG ---
Date Performed: 04/20/2017 Time Performed: 00:16:58 PTAGE: 67 years EKG: Sinus rhythm ABNORMAL ECG NO PREVIOUS TRACING DOCTOR: Apolinar Wyman Interpretating Date/Time 04/20/2017 15:54:20
--- NOTE | 2017-04-20 15:58 | EKG ---
Date Performed: 04/20/2017 Time Performed: 06:35:29 PTAGE: 67 years EKG: SINUS BRADYCARDIA ABNORMAL ECG NO PREVIOUS TRACING DOCTOR: Apolinar Wyman Interpretating Date/Time 04/20/2017 15:55:45
[2017-04-21] VITALS (13 sets, daily range): BP systolic 109–117; BP diastolic 52–63; PULSE 66–87; RESP 20; TEMP 97.7–98; O2SAT 95–97
[2017-04-21] MEDS: NITROGLYCERIN 2% OINT 1 GM PACKET TOPICAL SCH ×2 (01:23→08:14)
[2017-04-21 07:12] LABS: POTASSIUM 3.8 MEQ/L (3.5-5.1)
[2017-04-21 07:16] LABS: HDL CHOLESTEROL 67.4 MG/DL (40.0-60.0)
[2017-04-21] MEDS: SODIUM CHLORIDE 0.9% FLUSH 10 ML FLUSH IV FLUSH SCH (08:14)
[2017-04-21] MEDS ORDERED: amLODIPine BESYLATE 5 MG TAB PO SCH (09:00)
[2017-04-21] MEDS ORDERED: ASPIRIN EC 81 MG TABEC PO SCH (09:00)
[2017-04-21] MEDS ORDERED: PANTOPRAZOLE SOD 40 MG DELAYED RELEASE TAB PO SCH (09:00)
[2017-04-21] MEDS ORDERED: CITALOPRAM HYDROBROMIDE 20 MG TAB PO SCH (09:00)
[2017-04-21] MEDS ORDERED: PRAVASTATIN SOD 40 MG TAB PO SCH (09:00)
--- NOTE | 2017-04-21 09:16 | HHI.PR ---
Subjective Remarks resting comfortably with no distress. no chest pain or sob. has occasional cough. no fever. Objective Vitals Vital Signs Date Time Temp Pulse Resp B/P Pulse Ox O2 Delivery O2 Flow Rate FiO2 04/21/17 08:17 80 04/21/17 07:37 82 04/21/17 07:00 98.0 82 20 109/52 97 04/21/17 06:00 87 04/21/17 05:01 95 04/21/17 05:00 66 04/21/17 04:00 73 04/21/17 03:33 97.7 72 20 117/63 97 04/21/17 03:00 72 04/21/17 02:00 72 04/21/17 01:00 84 04/21/17 00:00 85 04/20/17 23:35 98.2 88 20 148/80 94 04/20/17 23:00 82 04/20/17 22:00 82 04/20/17 21:55 95 21 04/20/17 21:00 82 04/20/17 20:00 82 04/20/17 20:00 98.1 79 20 152/75 97 04/20/17 19:00 77 04/20/17 12:41 94 Room Air I/O 04/20/17 04/20/17 04/20/17 04/21/17 04/21/17 04/21/17 06:59 14:59 22:59 06:59 14:59 22:59 Intake Total 600 ml 480 ml Output Total 800 ml Balance 600 ml -320 ml Intake Oral 480 ml IV Total 600 ml Output Urine Total 800 ml Emesis 0 ml # Bowel Movements 0 Result Diagram: 04/20/17 0020 04/21/17 [address] Angiography 04/20/17 0135 Signed Impressions: Service Date/Time: Thursday, April 20, 2017 02:39 - CONCLUSION: 1. The study is negative for pulmonary embolism. 2. Adenopathy in the superior mediastinum, middle mediastinum, and bilateral hilar regions. 3. 2 cm right thyroid nodule. 4. Small bilateral lower lung pulmonary infiltrates. Uli Yu MD Chest X-Ray 04/20/17 0015 Signed Impressions: Service Date/Time: Thursday, April 20, 2017 00:15 - CONCLUSION: Patchy non-consolidative lower lung infiltrates. Uli Yu MD Objective Remarks GENERAL: This is a well-nourished, well-developed patient, in no apparent distress. CARDIOVASCULAR: Regular rate and regular rhythm without murmurs, gallops, or rubs. RESPIRATORY: Clear to auscultation. Breath sounds equal bilaterally. No wheezes , rales, or rhonchi. GASTROINTESTINAL: Abdomen soft, non-tender, nondistended. Normal, active bowel sounds MUSCULOSKELETAL: Extremities without clubbing, cyanosis, or edema. NEURO: Alert & Oriented x4 to person, place, time, situation. Moves all ext x4 Procedures cardiac cath. Medications and IVs Current Medications Morphine Sulfate (Morphine Inj) 2 mg ONCE ONCE IV PUSH Last administered on 00:36; Start 04/20/17 at 00:15; Stop 04/20/17 at 00:18; Status DC Nitroglycerin (Nitroglycerin 2% Oint) 1 inch ONCE ONCE TOP Last administered on 04/20/17 00:36; Start 04/20/17 at 00:15; Stop 04/20/17 at 00:18; Status DC Sodium Chloride 2 ml 2 ml UNSCH PRN IVF FLUSH AFTER USING IV ACCESS; Start at 00:15; Stop 04/20/17 at 09:45; Status DC Sodium Chloride (NS 500 ml Inj) 500 ml @ 500 mls/hr BOLUS ONCE IV Last administered on 04/20/17 02:02; Start 04/20/17 at 01:45; Stop 04/20/17 at 02:44 ; Status DC Sodium Chloride (NS Flush) 2 ml UNSCH PRN IV FLUSH FLUSH AFTER USING IV ACCESS ; Start 04/20/17 at 02:30 Sodium Chloride (NS Flush) 2 ml BID IV FLUSH Last administered on 04/21/17 08: 14; Start 04/20/17 at 02:30 Morphine Sulfate (Morphine Inj) 2 mg Q4H PRN IV PAIN SCALE 8 TO 10; Start 04/20 at 02:30 Ondansetron HCl (Zofran Inj) 4 mg Q6H PRN IV NAUSEA; Start 04/20/17 at 02:30; Stop 04/20/17 at 12:22; Status DC Nitroglycerin (Nitrostat Sl) 0.4 mg Q5M PRN SL CHEST PAIN; Start 04/20/17 at 02 :30 Aspirin (Aspirin Chew) 162 mg STAT ONCE PO ; Start 04/20/17 at 02:30; Stop at 02:31; Status DC Iohexol 75 ml 75 ml STK-MED ONCE IV Last administered on 04/20/17 02:55; Start 04/20/17 at 02:55; Stop 04/20/17 at 02:56; Status DC Levofloxacin/ Dextrose (Levaquin 500 Mg Premix Inj) 100 ml @ 100 mls/hr ONCE ONCE IV Last administered on 04/20/17 03:15; Start 04/20/17 at 03:15; Stop at 04:14; Status DC Nitroglycerin (Nitroglycerin 2% Oint) 1 inch Q6H TOPICAL Last administered on 08:14; Start 04/20/17 at 08:00 Amlodipine Besylate (Norvasc) 2.5 mg DAILY PO Last administered on 04/20/17 08 :19; Start 04/20/17 at 09:00; Stop 04/20/17 at 12:15; Status DC Miscellaneous (Pill Splitter) 1 ea UNSCH PRN OTHER SEE LABEL COMMENTS; Start at 08:15 Aspirin (Ecotrin Ec) 81 mg DAILY PO Last administered on 04/21/17 08:14; Start 04/21/17 at 09:00 Citalopram Hydrobromide (CeleXA) 20 mg DAILY PO Last administered on 04/21/17 08:14; Start 04/21/17 at 09:00 Pantoprazole Sodium (Protonix) 40 mg DAILY PO Last administered on 04/21/17 08 :13; Start 04/21/17 at 09:00 Pravastatin Sodium 40 mg 40 mg DAILY PO Last administered on 04/21/17 08:13; Start 04/21/17 at 09:00 Sodium Chloride (NS 1000 ml Inj) 1,000 ml @ 100 mls/hr Q10H IV ; Start at 09:41; Stop 04/20/17 at 12:22; Status DC Aspirin (Aspirin) 325 mg SHOE TREER PO ; Start 04/20/17 at 09:45; Stop 04/24/17 at 09:44 Methylprednisolone Sodium Succinate (SoluMEDROL INJ) 125 mg STK-MED ONCE .ROUTE Last administered on 04/20/17 10:37; Start 04/20/17 at 10:07; Stop 04/20/17 at 10:08; Status DC Diphenhydramine HCl 50 mg 50 mg STK-MED ONCE .ROUTE Last administered on 10:38; Start 04/20/17 at 10:07; Stop 04/20/17 at 10:08; Status DC Heparin Sodium/ Sodium Chloride (Heparin-NS/Pf Inj) 500 ml @ As Directed STK- MED ONCE .ROUTE Last administered on 04/20/17 10:52; Start 04/20/17 at 10:52; Stop 04/20/17 at 10:53; Status DC Midazolam HCl (Versed Inj) 2 mg STK-MED ONCE .ROUTE Last administered on 11:29; Start 04/20/17 at 11:07; Stop 04/20/17 at 11:08; Status DC Morphine Sulfate (Morphine Inj) 8 mg STK-MED ONCE .ROUTE Last administered on 11:51; Start 04/20/17 at 11:49; Stop 04/20/17 at 11:50; Status DC Amlodipine Besylate 5 mg 5 mg DAILY PO Last administered on 04/21/17 08:13; Start 04/21/17 at 09:00 Sodium Chloride (NS 1000 ml Inj) 1,000 ml @ 100 mls/hr Q10H IV ; Start at 12:15; Stop 04/20/17 at 18:14; Status DC Miscellaneous Information 1 ONCE ONCE XX ; Start 04/20/17 at 12:15; Stop at 12:23; Status DC Ondansetron HCl (Zofran Inj) 4 mg Q4H PRN IV NAUSEA; Start 04/20/17 at 12:15 Bacitracin (Bacitracin Oint Packet) 0.9 gm ONCE ONCE TOP ; Start 04/20/17 at 12 :15; Stop 04/20/17 at 12:23; Status DC Iohexol (OMNIPAQUE 350 INJ (General Internal Medicine Doctor)) 100 ml STK-MED ONCE OTHER ; Start at 14:15; Stop 04/20/17 at 14:16; Status DC A/P Assessment and Plan A/P - NSTEMI- likely due to vasospasm. s/p cardiac catheterization with : 1. Normal left ventricular function. 2. Normal left ventricular end-diastolic pressure. 3. Very mild nonobstructive coronary disease. continue nitrate- amlodipine was added. cleared by cardiology for discharge. - dyslipidemia- resumed statin -history of breast cancer with mediastinal adenopathy;d/w the patient; she wants to go home and have a f/u with her pcp and oncologist. -small bilateral lung infiltrate- questionable pneumonia ; start augmentin -thyroid nodule; f/u as outpatient; d/w the patient. -chronic back pain; continue with pain control.. Discharge Planning dc home. f/u ; pcp,cardiology and oncology. see med list. d/w the patient and RN. Yisel Vaz MD Apr 21, 2017 09:16
[2017-04-21] MEDS ORDERED: AMLO5 PO (09:21)
--- NOTE | 2017-04-21 09:22 | HHI.DCPOC ---
Discharge Care Plan Diagnosis: (1) Chest pain Your Health Problems Are: Chest Pain Goals to Promote Your Health * To prevent worsening of your condition and complications * To maintain your health at the optimal level Directions to Meet Your Goals Take your medications as prescribed Follow your dietary instruction Follow activity as directed Keep your appointments as scheduled Take your immunizations and boosters as scheduled If your symptoms worsen call your PCP, if no PCP go to Urgent Care Center or Emergency Room Smoking is Dangerous to Your Health. Avoid second hand smoke Call the 24-hour hour crisis hotline for domestic abuse at Yisel Vaz MD Apr 21, 2017 09:21
[2017-04-21] MEDS ORDERED: AUGM875T3 PO (09:23)
--- NOTE | 2017-04-21 09:23 | HHI.DS ---
Discharge Summary Admission Date Apr 20, 2017 at 02:27 Discharge Date: Apr 21, 2017 Admitting Diagnosis CP R/O TX (1) Chest pain ICD Code: R07.9 Diagnosis: Principal Procedures cardiac cath. Brief History - From Admission patient is a 67 y/o female with history of angina and dyslipidemia who presented to ER with chest pain. she says that last night when she was going to bathroom she started to have some chest pain.pain was midsternal with some radiation to the left jaw and left arm. pain was associated with nausea but with no emesis,sob or diaphoresis. pain improved with the nitro that she received. at the time of my evaluation she was in no acute distress, with no chest pain but complaining of mild headache.she says that she had stress test about two years ago. CBC/BMP: 04/20/17 0020 04/21/17 0542 Significant Findings Laboratory Tests Test 04/20/17 04/20/17 04/20/17 04/21/17 00:20 05:00 06:45 05:42 Monocytes (%) (Auto) 9.1 % (0.0-8.0) D-Dimer Quantitative (PE/DVT) 0.59 MG/L FEU (0.00-0.50) Chloride Level 108 MEQ/L (98-107) Blood Urea Nitrogen 20 MG/DL (7-18) Creatinine 1.12 MG/DL (0.50-1.00) Estimat Glomerular Filtration 48 ML/MIN (>89) 85 ML/MIN (>89) Rate Random Glucose 141 MG/DL 140 MG/DL (74-106) (74-106) Aspartate Amino Transf 14 U/L (15-37) (AST/SGOT) Albumin 3.2 GM/DL (3.4-5.0) Troponin I 0.32 NG/ML 0.36 NG/ML (0.02-0.05) (0.02-0.05) Total Creatine Kinase 254 U/L (26-192) Creatine Kinase MB 6.6 NG/ML (0.5-3.6) HDL Cholesterol 67.4 MG/DL (40.0-60.0) Imaging Last Impressions CT Angiography 04/20/17 0135 Signed Impressions: Service Date/Time: Thursday, April 20, 2017 02:39 - CONCLUSION: 1. The study is negative for pulmonary embolism. 2. Adenopathy in the superior mediastinum, middle mediastinum, and bilateral hilar regions. 3. 2 cm right thyroid nodule. 4. Small bilateral lower lung pulmonary infiltrates. Uli Yu MD Chest X-Ray 04/20/17 0015 Signed Impressions: Service Date/Time: Thursday, April 20, 2017 00:15 - CONCLUSION: Patchy non-consolidative lower lung infiltrates. Uli Yu MD PE at Discharge GENERAL: This is a well-nourished, well-developed patient, in no apparent distress. CARDIOVASCULAR: Regular rate and regular rhythm without murmurs, gallops, or rubs. RESPIRATORY: Clear to auscultation. Breath sounds equal bilaterally. No wheezes , rales, or rhonchi. GASTROINTESTINAL: Abdomen soft, non-tender, nondistended. Normal, active bowel sounds MUSCULOSKELETAL: Extremities without clubbing, cyanosis, or edema. NEURO: Alert & Oriented x4 to person, place, time, situation. Moves all ext x4 Hospital Course - NSTEMI- likely due to vasospasm. s/p cardiac catheterization with : 1. Normal left ventricular function. 2. Normal left ventricular end-diastolic pressure. 3. Very mild nonobstructive coronary disease. continue nitrate- amlodipine was added. cleared by cardiology for discharge. - dyslipidemia- resumed statin -history of breast cancer with mediastinal adenopathy;d/w the patient; she wants to go home and have a f/u with her pcp and oncologist. -small bilateral lung infiltrate- questionable pneumonia ; start augmentin -thyroid nodule; f/u as outpatient; d/w the patient. -chronic back pain; continue with pain control.. Pt Condition on Discharge: Good Discharge Disposition: Discharge Home Discharge Time: <= 30 minutes Discharge Instructions DIET: Follow Instructions for: Heart Healthy Diet Activities you can perform: Regular-No Restrictions Follow up Referrals: Cardiology Oncology PCP Follow-up New Medications: Amoxicillin-Clavulanate (Augmentin) 875-125 Mg Tab 1 TAB PO BID Infection Days 7 Ref 0 TAB Amlodipine (Norvasc) 5 Mg Tab 5 MG PO DAILY angina Days 30 Ref 0 TAB Continued Medications: Aspirin DR (Aspirin EC) 81 Mg Tabdr 81 MG PO DAILY Ref 0 TAB Cholecalciferol (Vitamin D-1000) 1,000 Unit Tab 1000 UNITS PO DAILY Nutritional Supplement #1 Ref 0 BOTTLE Citalopram (Citalopram) 20 Mg Tab 20 MG PO DAILY Control Depression #[address] Ref [address] (Cymbalta DR) 60 Mg Capdr 60 MG PO DAILY #30 Ref 0 CAP Hydrocodone-Acetaminophen (Vicodin Hp) 10-300 Tab 1 TAB PO Q4H PRN PAIN Ref 0 TAB Isosorbide Dinitrate (Isosorbide Dinitrate) 10 Mg Tab 10 MG PO BID #60 Ref 0 TAB Pantoprazole (Pantoprazole) 40 Mg Tab 40 MG PO DAILY Reflux #30 Ref 0 TAB Simvastatin (Simvastatin) 20 Mg Tab 20 MG PO DAILY Cholesterol Management #30 Ref 0 TAB Suvorexant (Belsomra) 20 Mg Tab 20 MG PO HS Provide Good Sleep #30 Ref 0 TAB Tizanidine (Tizanidine) 4 Mg Cap 4 MG PO TID Muscle Spasm Ref 0 CAP Discontinued Medications: Diclofenac Sodium DR (Diclofenac Sodium DR) 50 Mg Tabdr 50 MG PO BID Migraines #60 Ref 0 TAB Indomethacin (Indomethacin) 25 Mg Cap 25 MG PO TID Take with food, milk, or antacids to decrease stomach adverse effects. Ref 0 CAP Yisel Vaz MD Apr 21, 2017 09:23
== END 2017-04-21 11:22 | disposition home or self-care (01) ==
LOC: NEPC 00:12 → NEDA 02:27 → NEPFCDU 05:27 → HCIS 13:58
PROVIDERS: ADMIT Internal Medicine; ATTEND Internal Medicine
DX: R07.89 Other chest pain (principal); E78.5 Hyperlipidemia, unspecified; E04.1 Nontoxic single thyroid nodule; R91.8 Other nonspecific abnormal finding of lung field; M54.9 Dorsalgia, unspecified; F17.200 Nicotine dependence, unspecified, uncomplicated; R59.0 Localized enlarged lymph nodes; G89.29 Other chronic pain; I10 Essential (primary) hypertension; K21.9 Gastro-esophageal reflux disease without esophagitis; I21.4 Non-ST elevation (NSTEMI) myocardial infarction; R73.03 Prediabetes; R94.31 Abnormal electrocardiogram [ECG] [EKG]; Z79.82 Long term (current) use of aspirin; Z85.3 Personal history of malignant neoplasm of breast; Z79.899 Other long term (current) drug therapy
CPT/HCPCS: 71010; 71275; 80048; 80053; 80061; 82550; 82552; 83690; 83880; 84484; 85025; 85379; 85610; 85730; 93005; 93458; 96365; 96375; 99285; C1760; C1769; C1893; G0269; G0378; J1200; J1644; J1956; J2250; J2270; J2930; J7040; Q9967